=== PATIENT | female | born 1985 | race Caucasian/White ===

== ENCOUNTER 2023-07-02 08:57 | Emergency (ER) | payer OTHER, SELFPAY ==
[2023-07-02 09:06] VITALS: BP 144/87; PULSE 77; RESP 18; TEMP 36.2; O2SAT 98; BMI 27.5
--- NOTE | 2023-07-02 09:18 | ED_ITS ---
HPI - General Adult General Time Seen by Provider: 09:18 Date Seen: 07/02/23 Chief complaint: GI Bleed Stated complaint: GI concerns Time Seen by Provider: 07/02/23 09:01 Source: patient Mode of arrival: ambulatory Limitations: no limitations History of Present Illness HPI narrative: Patient is a 37 year white female who is largely healthy other than ADHD, she which she is on no medication currently, has not taken any Advil or and stays recently. Patient reports that she has had some bloody diarrhea over the last day. She had a neighbor that had E coli infection when they were at their cabin in [place], they also do a lot of swimming and are in the [place]. She has had no history of inflammatory bowel disease, Crohn's disease, ulcerative colitis. Her daughter was sick last week with a fever. Patient has not had any significant lightheadedness or dizziness. She has got really no abdominal pain. She has got no rectal pain. Related Data Home Medications Medication Instructions Recorded Confirmed lisdexamfetamine 40 mg capsule 40 mg PO QDAY 03/31/23 03/31/23 (Vyvanse) Previous Rx's Medication Instructions Recorded benzonatate 100 mg capsule 100 mg PO BID-TID PRN cough #20 03/31/23 caps Allergies Allergy/AdvReac Type Severity Reaction Status Date / Time No Known Drug Allergies Allergy Verified 03/31/23 12:43 Review of Systems Status of ROS: Reports: 6 or more systems reviewed and unremarkable except as noted in History and below [facility] Medical History History of chorioamnionitis (2017) ?Z87.59 - Personal history of other complications of , childbirth and the [place] (ICD-10) ADHD (attention deficit hyperactivity disorder) ?F90.9 - Attention-deficit hyperactivity disorder, unspecified type (ICD-10) Surgical History History of wisdom tooth extraction ?K08.409 - Partial loss of teeth, unspecified cause, unspecified class (ICD- 10) History of D&C ?Z98.890 - Other specified postprocedural states (ICD-10) History of delivery (09/13/17) ?Z98.891 - History of uterine scar from previous surgery (ICD-10) Family History Maternal Grandmother Pancreatic cancer Alzheimers disease Maternal Grandfather Pancreatic cancer Brain tumor Paternal Grandfather Diabetes Social History Smoking Status: Never smoker Exam Narrative: Exam Narrative: Objective: Vital signs unremarkable O2 sat excellent Alert or x3 No pale sclera No facial asymmetry, neck supple, pulse regular, heart rhythm regular heart murmur Abdomen benign soft nontender no epigastric pain no palpable masses. Denies back pain Extremities are no edema neurologic nonfocal. Const: Vital Signs, click to edit/add: Vital Signs - 24 hr 07/02/23 09:06 Temperature 97.1 F L Pulse Rate [Right Pulse Oximeter] 77 Respiratory Rate 18 Blood Pressure [Ri ght Upper Arm] 144/87 H Pulse Oximetry 98 Oxygen Delivery Me thod Room Air Course Vital Signs Vital signs: Initial Vital Signs Temperature 97.1 F L 07/02/23 09:06 Temperature Source Temporal Artery Scan 07/02/23 09:06 Pulse Rate 77 07/02/23 09:06 Respiratory Rate 18 07/02/23 09:06 Blood Pressure 144/87 H 07/02/23 09:06 Blood Pressure Mean 106 H 07/02/23 09:06 Blood Pressure Position Sitting 07/02/23 09:06 Pulse Oximetry 98 07/02/23 09:06 Oxygen Delivery Method Room Air 07/02/23 09:06 Vital Signs Temperature 97.1 F L 07/02/23 09:06 Pulse Rate 77 07/02/23 09:06 Respiratory Rate 18 07/02/23 09:06 Blood Pressure 144/87 H 07/02/23 09:06 Pulse Oximetry 98 07/02/23 09:06 Oxygen Delivery Method Room Air 07/02/23 09:06 Temperature 97.1 F L 07/02/23 09:06 Pulse Rate 77 07/02/23 09:06 Respiratory Rate 18 07/02/23 09:06 Blood Pressure 144/87 H 07/02/23 09:06 Pulse Oximetry 98 07/02/23 09:06 Oxygen Delivery Method Room Air 07/02/23 09:06 Medical Decision Making MDM Narrative Medical decision making narrative: 37-year-old white female with bloody diarrhea for short duration, recent travel to a [place] and exposure to an E coli infection. At this point I think the patient appears hemodynamically stable, will give some IV hydration in the form a L of saline, check stool culture, O and P, Giardia, C diff. would not treat at this time given she appears relatively asymptomatic and afebrile. She does report she has some history of anemia and will check her hemoglobin and electrolytes. Disposition pending findings above. Addendum 10:25 a.m.: The patient's lab studies look reassuring, including hemoglobin is normal. Would recommend follow up the stool cultures and samples with primary care in the next 2-3 days. We will notify her of results. Return any change concerns of lightheadedness dizziness or other issues. At this point this may be a self-limited illness and would recommend observation. She has not had any history of inflammatory bowel disease and would need follow-up as mention. Lab Data Labs: Lab Results 07/02/23 07/02/23 Range/Units 09:17 09:20 WBC 10.74 (4.50-11.00) K/uL RBC 4.30 (4.00-5.20) m/uL Hgb 13.2 (12.0-16.0) gm/dL Hct 38.2 (33.0-51.0) % MCV 89 (80-100) fL MCH 31 (26-34) pg MCHC 35 (32-36) gm/dL RDW Coeff of Chantal 11.4 L (11.5-15.5) % Plt Count 218 (140-440) K/uL Neut % (Auto) 74.2 H (42.0-72.0) % Lymph % (Auto) 16.9 L (20-44) % Kay % (Auto) 8.3 (0.0-11.0) % Eos % (Auto) 0.3 (0.0-7.0) % Baso % (Auto) 0.2 (0.0-3.0) % Neut # (Auto) 8.00 H (1.7-7.0) K/uL Lymph # (Auto) 1.80 (0.90-2.90) K/uL Kay # (Auto) 0.90 (0.00-0.90) K/UL Eos # (Auto) 0.03 (0.00-0.50) K/uL Baso # (Auto) 0.02 (0.00-0.30) K/uL Abs Immat Gran (auto) 0.01 (0.00-0.30) K/uL Imm/Tot Granulo (auto) 0.1 % Sodium 137 (135-149) mmol/L Potassium 3.8 (3.6-5.1) mmol/L Chloride 105 (96-114) mmol/L Carbon Dioxide 22 (20-32) mmol/L BUN 12 (5-24) mg/dL Creatinine 0.7 (0.5-1.5) mg/dL Estimated Creat Clear 95.02 Estimated GFR 114 ml/min Glucose 108 (60-115) mg/dL Calcium 9.1 (8.4-10.6) mg/dL Total Bilirubin 1.0 (0.1-1.5) mg/dL Direct Bilirubin 0.1 (0.0-0.5) mg/dL AST 26 (12-35) U/L ALT 22 (4-35) U/L Alkaline Phosphatase 47 (40-150) U/L C-Reactive Protein 0.9 (0.5-1.0) mg/dL Total Protein 7.6 (6.0-8.3) g/dL Albumin 4.6 (3.3-5.0) g/dL Amylase 62 (18-89) U/L Stl C. diff Tox B Gene Negative (Negative) Stl C. diff [id number] PRESUMPTIVE NEGATIVE (Negative) Discharge Plan Discharge Clinical Impression: Bloody diarrhea, Colitis Patient Disposition: Home w/ Parent or Adult Condition: Stable Additional Instructions: Light activity, fluids, avoid aspirin her Advil or Aleve, Tylenol is okay to take. Return if lightheadedness dizziness or other concern. Update regular doctor tomorrow. We will call you with the results of your stool analysis. Diet as tolerated Activity Level: Light activity Prescriptions: No Action Vyvanse 40 mg capsule 40 mg PO QDAY benzonatate 100 mg capsule 100 mg PO BID-TID PRN (Reason: cough) Qty: 20 0RF Stand Alone Forms: [facility] Info Inst[facility]
[2023-07-02 09:32] LABS: Basophils Absolute Auto 0.02 K/uL (0.00-0.30); Basophils Percent Auto 0.2 % (0.0-3.0); Eosinophils Absolute Auto 0.03 K/uL (0.00-0.50); Eosinophils Percent Auto 0.3 % (0.0-7.0); Hematocrit 38.2 % (33.0-51.0); Hemoglobin* 13.2 gm/dL (12.0-16.0); Immature Granulocytes Abs Auto 0.01 K/uL (0.00-0.30); Immature Granulocytes Pct Auto 0.1 %; Lymphocytes Percent Auto 16.9 % (20-44); Mean Corpuscular HGB Conc 35 gm/dL (32-36); Mean Corpuscular Hemoglobin 31 pg (26-34); Mean Corpuscular Volume 89 fL (80-100); Monocytes Percent Auto 8.3 % (0.0-11.0); Neutrophils Percent Auto 74.2 % (42.0-72.0); Platelet Count* 218 K/uL (140-440); RDW Coefficient of Variation % 11.4 % (11.5-15.5); White Blood Count* 10.74 K/uL (4.50-11.00)
[2023-07-02 09:34] LABS: Slide Review Reflex No
[2023-07-02] MEDS: 0.9 % SODIUM CHLORIDE 1000 ml 1,000 ML 6000 ML IV (09:35)
[2023-07-02 10:04] LABS: Albumin* 4.6 g/dL (3.3-5.0); Chloride* 105 mmol/L (96-114)
[2023-07-02 10:05] LABS: Potassium* 3.8 mmol/L (3.6-5.1); Sodium* 137 mmol/L (135-149)
[2023-07-02 10:07] LABS: Amylase* 62 U/L (18-89)
[2023-07-02 10:08] LABS: Alanine Aminotransferase* 22 U/L (4-35); Alkaline Phosphatase* 47 U/L (40-150); Aspartate Amino Transferase* 26 U/L (12-35); Bilirubin Direct* 0.1 mg/dL (0.0-0.5); Blood Urea Nitrogen* 12 mg/dL (5-24); Calcium* 9.1 mg/dL (8.4-10.6); Carbon Dioxide* 22 mmol/L (20-32); Creatinine* 0.7 mg/dL (0.5-1.5); Est. Creatinine Clearance* 95.02; Estimated Glomerular Filt Rate 114 ml/min; Glucose* 108 mg/dL (60-115); Total Protein* 7.6 g/dL (6.0-8.3)
[2023-07-02 10:10] LABS: C Reactive Protein* 0.9 mg/dL (0.5-1.0)
[2023-07-02 11:09] LABS: C.Difficile Negative (Negative); CDIFFEPI 027 PRESUMPTIVE NEGATIVE (Negative)
[2023-07-07 05:02] LABS: Ova and Parasite, Fecal Negative (Negative)
== END 2023-07-02 10:46 | disposition home or self-care (01) ==
LOC: ED 09:42
PROVIDERS: Emergency Provider Family Medicine
DX: K92.1 Melena (principal); K52.9 Noninfective gastroenteritis and colitis, unspecified
CPT/HCPCS: 36415; 80048; 80076; 82150; 85025; 86140; 87045; 87046; 87177; 87209; 87329; 87427; 87493; 99283; 99284; J7030

== ENCOUNTER 2024-03-23 12:03 | Outpatient (CLI) | payer OTHER, SELFPAY ==
--- OUTSIDE RECORDS SUMMARY | 2024-03-23 12:06 | XMS_ITS | Clinical Summary ---
Author Name Unknown Organization [facility] Address [place], [place] [address] Care Team Providers Care Track Inspector Name Role Phone Richard Machuca Primary Care Provider [phone] Allergies Active Allergy Reactions Criticality Noted Date Comments Beef Containing Products Anaphylaxis High 06/10/2022 Began as GI - now worsening with throat Medications Medication Sig Dispensed Refills Start Date End Date Status multivitamin (MVI) tablet Take 1 Tablet by mouth once daily. 0 10/31/2021 Active Amphetamine-Dextro amphetamine (AdderalL) 15 mg tabletIndications: Attention deficit disorder, unspecified hyperactivity presence Take 1 Tablet (15 mg) by mouth once daily. 30 Tablet 03/03/2024 Active dextroamphetamine- amphetamine (AdderalL) 10 mg tabletIndications: Attention deficit disorder, unspecified hyperactivity presence Take 1 Tablet (10 mg) by mouth once daily. 30 Tablet 03/03/2024 Active EPINEPHrine (EPIPEN) 0.3 mg/0.3 mL auto-injectorIndic ations:Allergy to beef Inject 0.3 mg (1 Pen) intramuscular each time if needed for Allergic Reaction. 2 Each 3 03/10/2024 Active EPINEPHrine (EPIPEN) 0.3 mg/0.3 mL auto-injectorIndic ations:Allergy to beef Inject 0.3 mg (1 pen) intramuscular each time if needed for Allergic Reaction. 2 Each 06/10/2022 03/10/20 24 Discontinu ed(Reorder (E-cancel not sent)) lisdexamfetamine (VYVANSE) 40 mg capsuleIndications :Attention deficit disorder, unspecified hyperactivity presence Take 1 Capsule (40 mg) by mouth once daily. 30 Capsule 12/22/2023 03/10/20 24 Discontinu ed(*Medica tion adjustment ) Active Problems Problem Noted Date Diagnosed Date Attention deficit disorder - dx 04/1104/27/2019 Anxiety 02/03/2019 Family history of thyroid disease 02/03/2019 Encounters Date Type Department Care Team Description 03/10/2024 8:45 AM CDT Office Visit [address] [address] Richard Machuca PA Physical (No new concerns) 03/10/2024 Orders Only [address] [address] Richard Machuca PA <No scans attached> 03/10/2024 Travel 03/03/2024 12:55 PM CDT Telemedicine [address] [address] Richard Machuca PA Telehealth (No vitals taken); Medication Management (No other concerns) 03/03/2024 Travel from Last 3 Months Immunizations Name Administration Dates Next Due DTP 04/04/1986,1985,1985 Hepatitis B (Adult) 09/06/2020,08/25/2018,2017 Influenza Virus, Unspecified 09/06/2020,12/04/19 17 Influenza, IIV3 (Age >=3 years) 08/18/2018 Influenza, IIV4 08/11/2017 Influenza, IIV4 (=>6mos) MDV 12/04/2016 Influenza,CCIIV4 PRESERV FREE 09/06/2020 Oral Polio Vaccine 1985,1985 Tdap 06/13/2017,03/25/2016 Family History Medical History Relation Name Comments No Known Problems Brother No Known Problems Father Cancer-pancreatic Maternal Grandfather Other Maternal Grandfather brain t umors Alzheimer's disease Maternal Grandmother Cancer-pancreatic Maternal Grandmother No Known Problems Mother Diabetes Paternal Grandfather No Known Problems Paternal Grandmother No Known Problems Sister x 2 Good Health Son x 2 Relation Name Status Comments Brother Alive Father Alive Maternal Grandfather Maternal Grandmother Mother Alive Paternal Grandfather Paternal Grandmother Alive Sister x 2 Alive Son x 2 Alive Social History Tobacco Use Types Packs/Day Years Used Date Smoking Tobacco: Never Smokeless Tobacco: Never Alcohol Use Standard Drinks/Week Comments Yes 3 (1 standard drink = 0.6 oz pur e alcohol) 3-4 glasses a week PHQ-2 Answer Date Recorded PHQ-2 TOTAL SCORE 0 03/10/2024 Social Connections Answer Date Recorded Frequency of Communication with Friends and Fami ly 0 03/10/2024 Financial Resource Strain Answer Date R ecorded Difficulty of Paying Living Expenses 3 03/10/2024 Difficulty of Paying Living Expenses Not on file 03/10/2024 Food Insecurity Answer Date Recorded Worried About Running Out of Food in the Last Ye ar 1 03/10/2024 Transportation Needs Answer Date Record ed Lack of Transportation (Medical) 1 03/10/2024 Housing Stability Answer Date Recorded Unable to Pay for Housing in the Last Year 1 03/10/2024 Sex and Gender Information Value Date Recorded Sex Assigned at Not on file Gender Identity Not on file Sexual Orientation Not on file Obstetrics History Para Term AB IAB SAB Ectopic Multiple Livin g Live Births 1 Date Outcome GA Total Labor Labor/2nd/3rd Weight Sex Delivery Anes PTL Avelina A1 A5 Name Cl in Last Filed Vital Signs Vital Sign Reading Time Taken Comments Blood Pressure 122/74 03/10/2024 8:51 AM CDT Pulse 64 03/10/2024 8:51 AM CDT Temperature 36.7 ??C (98 ??F) 02/15/2017 9:5 8 AM CDT Respiratory Rate 16 02/15/2017 12:4 0 PM CDT Oxygen Saturation 100% 02/15/2017 12: 40 PM CDT Inhaled Oxygen Concentration - - Weight 80.9 kg (178 lb 4.8 oz) 03/10/20 8:51 AM CDT with shoes Height 161.3 cm (5' 3.5) 03/10/2024 8: 51 AM CDT Body Mass Index 31.09 03/10/2024 8:51 AM CDT Plan of Treatment Health Maintenance Due Date Last Done Comments HIV for age 15-65 2000 Hepatitis C screening for age 18-79 2003 COVID-19 vaccine series ( season) 2023 12/27/2021 Influenza for age 9-49 07/25/2024 0, 09/06/2020, 08/18/2018, Additional history exists BMI (ht and wt on same day) for age 18+ 03/10/2025 03/10/2024, 12/26/2022, 05/15/2021, Additional history exists Depression screening for age 12+ 03/10/2025 03/10/2024, 03/10/2024, 12/26/2022, Additional history exists Pap test for age 21-65 08/13/2025 0 (Completed outside of [facility]), 11/09/2018 (Completed outside of [facility]) Tetanus booster 06/13/2027 06/13/2017, 03/25/2016 Tdap Completed 06/13/2017, 03/25/2016 Pneumococcal series for age 6-64 Aged Out No longer eligible based on patient's age to complete this topic Procedures Procedure Name Priority Date/Time Associated Diagnosis Comments LIPID PANEL W REFLEX MEASURED LDL Routine 03/10/2024 9:29 AM CDT Screening for cholesterol level GLUCOSE, FASTING Routine 03/10/2024 9:29 AM CDT Screening for diabetes mellitus from Last 3 Months Results * (ABNORMAL) LIPID PANEL W REFLEX MEASURED LDL (03/10/2024 9:29 AM CDT) CHOLESTEROL,TOTAL 217(H) 100 - 199 mg/dL 03/10/2024 1:58 PM CDT [facility] Comment: Cholesterol, Total Reference Ranges Desirable <200 mg/dL Borderline 200-239 mg/dL High >=240 mg/dL TRIGLYCERIDES 108 <150 mg/dL 03/10/2024 1:58 PM CDT [facility] HDL CHOLESTEROL 49 >40 mg/dL 1:58 PM CDT [facility] [email or web address] NON-HDL CHOLESTEROL 168(H) <145 mg/dl 03/10/2024 1:58 PM CDT [facility] [email or web address] CHOL/HDL RATIO 4.43 <4.50 03/10/2024 1:58 PM CDT [facility] LDL CHOLESTEROL 146(H) <=130 mg/dL 03/10/2024 1:58 PM CDT [facility] VLDL CHOLESTEROL 22 <=30 mg/dL 03/10/2024 1:58 PM CDT [facility] PROVIDER ORDERED STATUS FASTING 03/10/2024 1:58 PM CDT [facility] Blood BLOOD SPECIMEN / Unknown Venipuncture / Unknown 03/10/2024 9:29 AM CDT 03/10/2024 9:29 AM CDT [facility] [address] [place] [address], * (ABNORMAL) GLUCOSE, FASTING (03/10/2024 9:29 AM CDT) GLUCOSE 125(H) 70 - 99 mg/dL 03/10/2024 9:38 AM CDT [facility] Blood BLOOD SPECIMEN / Unknown Venipuncture / Unknown 03/10/2024 9:29 AM CDT 03/10/2024 9:29 AM CDT Richard [facility] [address] [place] [address] from Last 3 Months Care Teams Track Inspector Relationship Specialty [place] [address] [place] [address] PCP - General Family Practice 04/27/19
--- OUTSIDE RECORDS SUMMARY | 2024-03-23 12:06 | XMS_ITS | Encounter Summary ---
Author Name Unknown Organization [facility] Address [address] [place] [address] Care Team Providers Care Bung Remover Name Role Phone Kat Alford MD Primary Care Provider [phone] Encounter Details Date Type Department Care Team (Late st Contact Info) Description 11/20/2023 jammie [facility] [phone] Social History Tobacco Use Types Packs/Day Years Used Date Smoking Tobacco: Never Smokeless Tobacco: Never Alcohol Use Standard Drinks/Week Comments Yes 0 (1 standard drink = 0.6 oz pur e alcohol) Depression Answer Date Recor ded Last EPDS Total Score 1 06/10/2020 Last EPDS Self Harm Result 0-->never 06/10 Sex and Gender Information Value Date Recorded Sex Assigned at Not on file Gender Identity Not on file Sexual Orientation Not on file documented as of this encounter Progress Notes * FAMILY MEDICINEJAMMIE PROVIDER - 11/20/2023 9:55 AM CST Jammie Treatment Plan Diagnosis Sinusitis Visit Date November 20, 2023 Meghan Hernandes Date of : 85 Provider Nita Huber, Nurse Practitioner Note From Provider Corbin Christianson, Thanks for using [facility]. See the attached plan. Hope you feel better soon, Roma Treatment Plan Since you have a bacterial infection, let's try an antibiotic. I sent a prescription to [facility]. I??e also listed a few self-care tips to soothe your symptoms while the antibiotic kills thebacteria. If your symptoms don't improve after 4 days, or if you have questions, select Help to Request a Follow-up and we'll adjust your treatment for free. Order(s) doxycycline monohydrate 100 mg capsule Take 1 capsule oral every twelve hours as directed for 7 days Note: Refills: None Sent To: [facility] [address] [place] [id number] Treatment Plan Self Care Tip Topics Inflammation Relief with Ibuprofen Avoid Decongestants and Antihistamines Relieve Facial Pressure with Nasal Steroids How to Take Your Nasal Steroid Warm Packs Steam Therapy What to Expect Our goal is to treat the infection and to reduce the inflammation of your sinus tissues to promote drainage. This will make you feel better quickly. If you follow the recommendations I made on the Treatment tab, your symptoms should begin to improve in 4 days of following this treatment plan. If your symptoms haven?? improved after 4 days, select Help to Request a Follow-up and we??l discuss nextsteps. What to Watch Out For Give us a call immediately if you experience: ??? Vision changes ??? Redness and swelling of the eyes or face ??? Increasing congestion ??? Worsening pain ??? High fevers My Conditions, Orders, Allergies as of November 20, 2023 Standard condition list None Current orders doxycycline monohydrate (doxycycline monohydrate) Allergies Penicillins [facility] Information [facility] [employer] We are an online clinic open 16/06. If you have any questions or comments about this visit, please call or email [email or web address] [employer]ANT OPERATOR HELPER documented in this encounter Plan of Treatment Not on file documented as of this encounter Visit Diagnoses Diagnosis Acute sinusitis, unspecified documented in this encounter Care Teams Bung Remover Relationship Specialty Start Date End Date Kat Alford MD [address] [place] [id number] PCP - General 03/04/16 documented as of this encounter
--- OUTSIDE RECORDS SUMMARY | 2024-03-23 12:06 | XMS_ITS | Clinical Summary ---
Author Name Unknown Organization [facility] Address [address] [place] [address] Care Team Providers Care Automotive Specialty Technician Name Role Phone Kat Alford MD Primary Care Provider [phone] Source Comments You are receiving this document as you are listed as the primary care provider,follow-up provider, or the patient has been referred to you for consultation.This is in compliance with the Medicare and[facility] EHR Incentive Program,which states Providers who transition their patient to another setting of careor provider of care or refers their patient to another provider of care shouldprovide summary care record for each transition of care or referral. [facility] Allergies No known active allergies Medications Medication Sig Dispensed Refills Start Date End Date Status Rhk-Fgh-LL-Fish Oil ([facility] OR) Active Misc. Devices (BREAST PUMP) Use as directed 1 Each 07/30/2017 Active Additional Information Patient not taking.Reported on 04/09/2021 calcium carbonate (TUMS) 500 MG chewable tablet Take 500 mg by mouth daily as needed for Heartburn. Active ferrous sulfate (AKA IRON SULFATE) 325 (65 FE) MG enteric coated tablet Take 1 Tab by mouth daily with breakfast. 60 Tab 2 09/15/2017 Active Additional Information Patient not taking.Reported on 04/09/2021 oxyCODONE-acetaminop hen (PERCOCET) 5-325 MG tablet Take 1-2 Tabs by mouth every 4 hours as needed for Pain. 20 Tab 09/15/2017 Active Additional Information Patient not taking.Reported on 10/28/2017 ibuprofen (MOTRIN) 600 MG tablet Take 1 Tab by mouth every 6 hours as needed. 60 Tab 09/15/2017 Active Additional Information Patient not taking.Reported on 10/28/2017 Norethindrone, Contraceptive, (MIGUEL) 0.35 MG tablet Take 1 Tab by mouth daily. 90 Tab 3 10/28/2017 Active nystatin (MYCOSTATIN) 703849 UNIT/GM cream Apply topically three times a day. 30 g 2 10/28/2017 Active Additional Information Patient not taking.Reported on 04/09/2021 Active Problems Patient Care Coordination No te Formatting of this note migh t be different from the original. Prior D&C for blighted ovum First tri bleeding (@11 wks- seen at [place]- normal report) NT Screen Problem Noted Date Diagnosed Date Arrest of descent, delivered, current hospitaliz ation 09/13/2017 delivery delivered 09/13/2017 Chorioamnionitis, delivered, current hospitaliza tion 09/13/2017 Resolved Problems Problem Noted Date Diagnosed Date Resolved Date Acute blood loss anemia 09/14/201703/2017 Post-term , 40-42 weeks of gestation 09/11/20 17 10/28/2017 Encounter for supervision of normal first in third trimester 08/29/2017 10/28/2017 Immunizations Name Administration Dates Next Due Flu Vac (3+ yrs) 12/04/2016 Influenza IIV4 (Quadrivalent) 0.5mL (80789) 07/25 TDAP (BOOSTRIX) 03/25/2016 Tdap 06/13/2017 Family History Medical History Relation Name Comments Cancer Maternal Grandfather Alzheimer's Maternal Grandmother Cancer Maternal Grandmother Diabetes Paternal Grandfather Diabetes, Type II Paternal Grandfather Heart Disease Paternal Grandfather Hypothyroidism [Other] Sister Relation Name Status Comments Father Alive Mother Alive Brother Alive Maternal Grandfather Maternal Grandmother Paternal Grandfather Paternal Grandmother Alive Sister Alive Social History Tobacco Use Types Packs/Day [...] on file Sexual Orientation Not on file Last Filed Vital Signs Vital Sign Reading Time Taken Comments Blood Pressure 107/72 10/28/2017 10:22 AM CASEWORK MANAGER Pulse 69 10/28/2017 10:22 AM CASEWORK MANAGER Temperature 36.4 ??C (97.5 ??F) 04/09/2021 10:31 AM C DT Respiratory Rate 16 09/15/2017 8:00 AM CDT Oxygen Saturation 97% 09/13/2017 6:55 AM CDT Inhaled Oxygen Concentration - - Weight 73.5 kg (162 lb) 04/09/2021 10:31 AM CDT Height 162.6 cm (5' 4) 04/09/2021 10:31 AM CDT Body Mass Index 27.81 04/09/2021 10:31 AM CDT Plan of Treatment Health Maintenance Due Date Last Done Comments Cervical Cancer Screening Due 1985 Hep C Screening (Preventive Services) 1985 IPV (Polio) (3 of 3 - 4-dose series) 1989 1985, 1985 Adult Preventive Visit 2003 HepB (1) 2004 COVID-19 Vaccine ( season) 2023 Influenza (#1) 2023 09/06/2020, 07/26, 08/11/2017, Additional history exists DTaP/Tdap/Td (6 - Tdap) 06/13/2027 06/13/20 17, 03/25/2016, 04/04/1986, Additional history exists Zoster/Shingles (1 of 2) 2035 HIV Screening (Preventive Services) Completed 01/21/2017 HPV Vaccine Aged Out No longer eligi ble based on patient's age to complete this topic HepA Aged Out No longer eligi ble based on patient's age to complete this topic Hib Aged Out No longer eligi ble based on patient's age to complete this topic MCV4 Aged Out No longer eligi ble based on patient's age to complete this topic Pneumococcal Aged Out No longer eligi ble based on patient's age to complete this topic Procedures Procedure Name Priority Date/Time Associated Diagnosis Comments HIV-1 P24 AND HIV-1/HIV-2 ANTIBODIES Routine 01/21/2017 2:24 PM CASEWORK MANAGER Screening examination for venereal disease from Last 3 Months or Most Recently Relevant to Health Maintenance Results * LAB HIV-1 p24 AND HIV-1/HIV-2 ANTIBODIES (01/21/2017 2:24 PM CASEWORK MANAGER) HIV-1 p24 Ag and HIV-1/HIV-2 Ab Nonreactive Nonreactive PN SOFT 01/21/2017 2:24 PM CASEWORK MANAGER 01/21/2017 2:35 PM CASEWORK MANAGER Narrative PN SOFT - 01/21/2017 3:50 PM CASEWORK MANAGER Performed at [address] [address] CLIA number [id number] Perri Irvin APRN, CNP LAB_1 PN SOFT [address] [place] [phone] from Last 3 Months or Most Recently Relevant to Health Maintenance Advance Directives * Full Code (Latest Code Status on File) Date Activated Date Inactivated Comments 09/13/2017 8:31 AM 09/15/2017 5:55 PM * Full Code Date Activated Date Inactivated Comments 09/11/2017 12:39 PM 09/13/2017 8:31 AM Care Teams Automotive Specialty Technician Relationship Specialty Start Date End Date Kat Alford MD [address] [place] [address] [address] [place] [address] PCP - General 03/04/16
--- NOTE | 2024-03-23 12:15 | US_ITS ---
Patient: MARY SIMPSON Facility:?[facility] Patient ID:?[id number] Site Patient ID:?[id number]. Site :?1985 Study:?US-OB Pelvis TA/TV Pelvic US-03/23/2024 1:05:15 PM Ordering Physician:Tish February Final Report: CLINICAL HISTORY: Pelvic and Perineal Pain TECHNIQUE: 2D torres scale ultrasound. In addition color Doppler and spectral Doppler analysis was performed of the pelvis using a transabdominal and transvaginal approach. FINDINGS: On transvaginal imaging, the myometrium has a mildly heterogeneous echotexture. The uterus measures 7.5 x 3.6 x 5.0 cm. The endometrial lining appears normal and measures 7.5 mm in thickness. The right ovary measures 3.5 x 1.8 x 2.6 cm in size and the left ovary measures 2.8 x 1.8 x 2.3 cm. The ovaries demonstrate normal arterial and venous blood flow on color Doppler and spectral Doppler analysis. There are no suspicious fluid collections within the cul-de-sac. Simple cyst right ovary measures 2.4 x 1.5 x 2.0 cm. IMPRESSION: Incidental simple right ovarian cyst measuring 2.4 cm. No torsion or adnexal mass. Dictated by Daniele Pruitt MD @ 03/23/2024 1:23:05 PM Signed by:?Daniele Pruitt MD @03/23/2024 1:23:05 PM (Electronic Signature)
== END 2024-03-23 12:04 | disposition home or self-care (01) ==
PROVIDERS: Visit Provider Physician Assistant
DX: R10.2 Pelvic and perineal pain (principal); N83.201 Unspecified ovarian cyst, right side
CPT/HCPCS: 76830; 76856; 93976